=== PATIENT | male | born 1990 ===

== ENCOUNTER 2016-06-13 00:55 | Emergency (ER) | payer BC, OTHER ==
[2016-06-13 01:52] VITALS: O2SAT 99
--- NOTE | 2016-06-13 05:20 | C.PDOC ---
History Of Present Illness 25 y/o male presents to the ED with complains of right upper tooth pain. Pt broke tooth several weeks ago, no dental follow up. Pt states pain developed the last couple days. Has not taken any medications for pain. Denies fever, chills, facial swelling or any other complaints. Time Seen by Provider: 06/13/16 04:51 Chief Complaint (Nursing): Dental Pain History Per: Patient History/Exam Limitations: no limitations Onset/Duration Of Symptoms: Days Current Symptoms Are (Timing): Still Present Severity: Mild Quality: Positive for: "Pain" Recent travel outside of the [place]: No Past Medical History Reviewed: Historical Data, Nursing Documentation, Vital Signs Vital Signs: Last Vital Signs Temp 97.9 F 06/13/16 01:50 Pulse 66 06/13/16 01:50 Resp 20 06/13/16 01:50 BP 121/78 06/13/16 01:50 Pulse Ox 99 06/13/16 05:38 Family History: States: Unknown Family Hx - Social History Hx Alcohol Use: No Hx Substance Use: No - Immunization History Hx Tetanus Toxoid Vaccination: No Hx Influenza Vaccination: No Hx Pneumococcal Vaccination: No Review Of Systems Except As Marked, All Systems Reviewed And Found Negative. Constitutional: Negative for: Fever, Chills ENT: Positive for: Other (right upper tooth pain). Negative for: Mouth Swelling Skin: Negative for: Rash Physical Exam - Physical Exam Appears: Non-toxic, No Acute Distress Skin: Warm, Dry, No Rash Head: Atraumatic, Normacephalic Teeth: Caries (right upper tooth, approx #5 with [employer], no adjacent gum swelling. tooth tender to palp, no facial swelling) Gingiva: No Swelling, No Bleeding, No Abscess Neck: Normal ROM, Supple Chest: Symmetrical Extremity: Bilateral: Atraumatic Neurological/Psych: Oriented x3, Normal Speech ED Course And Treatment O2 Sat by Pulse Oximetry: 99 (on room air) Pulse Ox Interpretation: Normal Disposition Counseled Patient/Family Regarding: Diagnosis, Need For Followup, Rx Given - Disposition Disposition: HOME/ ROUTINE Disposition Time: 05:38 Condition: STABLE Prescriptions: Ibuprofen [Motrin] 600 mg PO TID #30 tab Instructions: Dental Caries (ED) Forms: General Discharge Instructions - Clinical Impression Clinical Impression: Dental caries - PA / SALES CONSULTING DIRECTOR / Resident Statement MD/DO has reviewed & agrees with the documentation as recorded. - Scribe Statement The provider has reviewed the documentation as recorded by the Scribe Shan Tenorio All medical record entries made by the Ladariusibe were at my direction and personally dictated by me. I have reviewed the chart and agree that the record accurately reflects my personal performance of the history, physical exam, medical decision making, and the department course for this patient. I have also personally directed, reviewed, and agree with the discharge instructions and disposition.
[2016-06-13 05:54] VITALS: BP 120/76; PULSE 68; RESP 18; TEMP 98
== END 2016-06-13 05:48 | disposition home or self-care (01) ==
LOC: C.ER 00:55
DX: K02.9 Dental caries, unspecified (principal)